=== PATIENT | male | born 1965 | race Caucasian/White ===

== ENCOUNTER 2016-11-18 21:37 | Emergency (ER) | payer MEDICAID, OTHER ==
[~2016-11-18] VITALS: Ht 170.2 cm; Wt 116.5 kg
[2016-11-18 21:43] VITALS: Ht 170.2 cm; Wt 116.5 kg
[2016-11-18] MEDS ORDERED: CLINDAMYCIN 300 MG INJ IM ONE (22:30)
[2016-11-18] MEDS ORDERED: ENAL20TA PO (23:41)
--- NOTE | 2016-11-18 23:41 | ERD ---
ER Documentation Chief Complaint Date/Time DATE: 11/18/16 TIME: 23:39 Chief Complaint rt back head abscess,has not taken BP meds X1 week HPI This is a 51 year male comes in with complaints of a lump noted on his back of his hand is getting progressively worse. He said it started as a "hair bump". No fevers or chills. Blood pressure noted to be elevated. Patient has history of hypertension and has been noncompliant with his meds. No chest pain palpitations fevers chills shortness of breath. No other current complaints. ROS All systems reviewed and are negative except as per history of present illness. Allergies Allergies: Coded Allergies: No Known Allergy (Unverified , 11/18/16) PMhx/Soc History of Surgery: No Anesthesia Reaction: No Hx Neurological Disorder: No Hx Respiratory Disorders: No Hx Cardiac Disorders: Yes (HTN) Hx Psychiatric Problems: No Hx Miscellaneous Medical Probl: No Hx Alcohol Use: Yes (rarely) Hx Substance Use: No Hx Tobacco Use: No Smoking Status: Never smoker Physical Exam Vitals Vital Signs Date Time Temp Pulse Resp B/P Pulse Ox O2 Delivery O2 Flow Rate FiO2 11/18/16 21:52 69 15 192/120 97 Room Air 11/18/16 21:43 97.8 65 18 220/130 98 Physical Exam Const: [] Head: Atraumatic Eyes: Normal Conjunctiva ENT: Normal External Ears, Nose and Mouth. Neck: Full range of motion..~ No meningismus. Resp: Clear to auscultation bilaterally Cardio: Regular rate and rhythm, no murmurs Abd: Soft, non tender, non distended. Normal bowel sounds Skin: 2 x 2 area of erythema and induration on occipital region of scalp. No fluctuance noted. Back: No midline or flank tenderness Ext: No cyanosis, or edema Neur: Awake and alert Psych: Normal Mood and Affect Results 24 hrs Laboratory Tests Test 11/18/16 22:19 Bedside Glucose 108mg/dL Current Medications Medications (Trade) Dose Ordered Sig/Alfredo Route PRN Reason Start Time Stop Time Status Last Admin Dose Admin Clonidine (Catapres) 0.2 mg ONCE ONCE PO 11/18/16 22:30 11/18/16 22:31 DC 11/18/16 22:48 Hydralazine HCl (Apresoline) 50 mg ONCE ONCE PO 11/18/16 22:30 11/18/16 22:31 DC 11/18/16 22:47 Clindamycin Phosphate (Cleocin) 600 mg ONCE ONCE IM 11/18/16 22:30 11/18/16 22:31 DC 11/18/16 22:53 Procedures/MDM Medical decision makin-year-old female with what looks to be folliculitis. Treated with clindamycin intramuscular. Discharged home with clindamycin and Bactrim. Follow-up in 2 days for wound check. Blood pressure treated with hydralazine and clonidine with good response. Patient's blood pressure was elevated (>120/80) but appears stable without evidence of hypertension emergency or urgency. The patient was counseled about the risks of hypertension and urged to pursue outpatient monitoring and therapy within a week with their primary care physician. Departure Diagnosis: Primary Impression: Folliculitis Additional Impression: Accelerated hypertension Condition: Stable ISH MORGAN November 18, 2016 23:40
[2016-11-18] MEDS ORDERED: CLIN-73 PO (23:43)
[2016-11-18] MEDS ORDERED: SULF1TAB31 PO (23:43)
[2016-11-18 23:54] VITALS: BP 140/95; PULSE 58; RESP 16; TEMP 98
== END 2016-11-19 | disposition home or self-care (01) ==
LOC: E/R 21:37
DX: L73.9 Follicular disorder, unspecified (principal); I10 Essential (primary) hypertension
CPT/HCPCS: 82962; 93005; 96372; Z7502; Z7610

== ENCOUNTER 2018-05-07 13:22 | Emergency (ER) | END 2018-05-07 16:13 | disposition home or self-care (01) ==